=== PATIENT | female | born 1985 | race Caucasian/White ===

== ENCOUNTER → 2019-02-15 | Day surgery (SDC) | payer OTHER ==
[~2019-02-15] MED LIST: FLEXERIL; IBUPROFEN 800800 M1 PO; LORTAB 5 MG/5001 TA1 PO; NORCO 5-325 TA1 EACH PO; PERCOCET 5-3251 EACH PO; TYLENOL325 MG PO; VALIUM2 MG PO
[2019-02-15 06:49] LABS: HEMATOCRIT 42.6 % (37.0-47.0); HEMOGLOBIN 14.2 gm/dL (12.0-15.0); MCH 27.7 pg (26.0-34.0); MCHC 33.3 g/dL (28.0-37.0); MCV 83.1 fL (80.0-100.0); MPV 8.1 fl. (7.2-11.1); RBC 5.13 mil/uL (4.20-5.00); WBC 8.2 thou/uL (4.0-11.0)
[2019-02-15 06:57] LABS: CALCIUM 8.9 mg/dL (8.5-10.1); CREATININE 0.8 mg/dL (0.6-1.3); POTASSIUM 3.9 mmol/L (3.5-5.1)
--- NOTE | 2019-02-15 10:59 | OP ---
[address] [address] OPERATIVE REPORT Name: JEFERSON DUARTE Room: [facility]..#: [id number] Admission: 02/15/19 Attend Phys: Joan Prieto DO Discharge: Date of : 85 Report #: [id number] THIS REPORT FOR: //name// CC: Joan Prieto [facility] physician/PCP DATE OF SERVICE: 02/15/2019 PREOPERATIVE DIAGNOSIS: Left back subcutaneous mass. POSTOPERATIVE DIAGNOSIS: Left back subcutaneous mass. PROCEDURE: Excision of left back subcutaneous mass (5 x 3 x 2 cm). SURGEON: Joan Prieto DO. ANESTHESIA: General endotracheal. ASSISTANTS: Sean Love, medical student. SPECIMENS: Left back mass. ESTIMATED BLOOD LOSS: 10 mL. INDICATION FOR PROCEDURE: The patient is a 33-year-old female who presented to my office for evaluation of enlarging left back mass, which was becoming increasingly symptomatic. The patient desires surgical excision. She was explained the procedure including risks, benefits and alternatives. All questions were answered to the patient's satisfaction, informed consent was obtained. DESCRIPTION OF PROCEDURE: The patient was brought back to the operating room, general anesthesia was induced. SCDs were placed on bilateral lower extremities, and the patient was then turned into a prone position. The patient was noted to be properly positioned with good padding and pressure points. The area was then prepped and draped in the usual sterile fashion. Next, a timeout was performed. A local anesthetic was infiltrated into the overlying tissues of the palpable mass, which was previously marked in the preoperative holding area. Next, a 6 cm incision was created in the skin with a 10 blade scalpel. Dissection was carried down to the subcutaneous tissues using Bovie cautery. Next, with blunt dissection using an index finger, a lipoma was encountered. A multiloculated lipoma was encountered and was freed from the surrounding structures. The lipoma was noted to have several branches, which were removed as well. The wound was internally and externally palpated and no further abnormalities were appreciated. The wound was then irrigated with sterile saline. Additional local anesthetic [place] [address] OPERATIVE REPORT Name: JEFERSON DUARTE Room: [facility].R.#: [id number] Admission: 02/15/19 Attend Phys: Joan Prieto DO Discharge: Date of : 85 Report #: [id number] tissues. The skin was then reapproximated with a 3-0 Vicryl in the deep dermal stitch and a 4-0 Monocryl was used in a running subcuticular manner to close the skin. The area was cleaned and Dermabond was applied for sterile dressing. All needle, instrument and sponge count was noted correct x 2 at the end of the case. The patient was awakened from anesthesia, taken to the recovery room in stable condition for further recovery prior to discharge home. <ELECTRONICALLY SIGNED> By: Joan Prieto, 02/15/19 1059 [id number] Prieto DO /nt
== END | disposition home or self-care (01) ==
LOC: M.SUR 06:13
PROVIDERS: Surgery
DX: D17.1 Benign lipomatous neoplasm of skin and subcutaneous tissue of trunk (principal); Z79.891 Long term (current) use of opiate analgesic

== ENCOUNTER 2019-04-18 19:55 | Emergency (ER) | payer OTHER ==
[~2019-04-18] VITALS: Ht 160 cm; Wt 81.7 kg
[2019-04-18] MEDS ORDERED: AMOXICILLIN 50500 M1 PO (21:20)
[2019-04-18] MEDS ORDERED: BUTALB-APAP-CA1 EACH PO (21:20)
[2019-04-18 21:28] VITALS: BP 117/55
== END 2019-04-18 21:31 | disposition home or self-care (01) ==
LOC: M.ERS 19:55
DX: J06.9 Acute upper respiratory infection, unspecified (principal); Z88.6 Allergy status to analgesic agent

== ENCOUNTER 2019-07-18 17:03 | Emergency (ER) | payer OTHER ==
[~2019-07-18] VITALS: Ht 160 cm; Wt 89.8 kg
[~2019-07-18 17:03] MED LIST changes: +AMOXICILLIN 50500 M1 PO; +BUTALB-APAP-CA1 EACH PO
[2019-07-18] MEDS ORDERED: PREDNISONE 10 M10 M1 PO (17:24)
[2019-07-18 17:35] VITALS: BP 135/72
== END 2019-07-18 17:36 | disposition home or self-care (01) ==
LOC: M.ERS 17:03
DX: M25.511 Pain in right shoulder (principal); Z88.8 Allergy status to other drugs, medicaments and biological substances

== ENCOUNTER 2021-11-22 20:55 | Emergency (ER) | payer OTHER ==
[~2021-11-22] VITALS: Ht 160 cm; Wt 86.2 kg
[~2021-11-22 20:55] MED LIST changes: +PREDNISONE 10 M10 M1 PO
[2021-11-23 00:58] VITALS: BP 123/54
== END 2021-11-23 00:58 | disposition left against medical advice (07) ==
LOC: M.ERS 20:55
DX: R05.9 Cough, unspecified (principal); R51.9 Headache, unspecified; R68.83 Chills (without fever); Z53.21 Procedure and treatment not carried out due to patient leaving prior to being seen by health care provider